=== PATIENT | male | born 1995 | race Caucasian/White ===

== ENCOUNTER 2016-08-10 19:08 | Emergency (ER) | payer OTHER ==
[2016-08-10 19:17] VITALS: BP 126/82
[2016-08-10] MEDS ORDERED: Lidocaine 1% 50 ML MDV INJECT ONE (19:20)
--- NOTE | 2016-08-10 19:24 | EDM.PDOC ---
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 He was opening a can with his hunting knife and he was opening the lid and slipped and cut the tip of his 3rd and 4th fingers. He is right handed and his tetanus it up to date. Onset: Sudden Duration: Minutes: Location: Reports: Upper Extremity, Right (3rd and 4th fingers) Quality: Reports: Sharp Severity: Mild Improves with: Reports: None Worsens with: Reports: None Context: Reports: Activity (Opening a can) Associated Symptoms: Reports: No Other Symptoms Right Hand Pain Score (Numeric/FACES): 4 - Related Data Allergies Allergy/AdvReac Type Severity Reaction Status Date / Time No Known Allergies Allergy Verified 08/10/16 19:14 Home Meds: Home Meds . [No Known Home Meds] 08/10/16 [History] Past Medical History - Past Health History Medical/Surgical History: Denies Medical/Surgical History Social & Family History - Tobacco Use Smoking Status *Q: Never Smoker - Recreational Drug Use Recreational Drug Use: No ED ROS GENERAL - Review of Systems Review Of Systems: See Below Constitutional: Reports: No Symptoms HEENT: Reports: No Symptoms Respiratory: Reports: No Symptoms Cardiovascular: Reports: No Symptoms Endocrine: Reports: No Symptoms GI/Abdominal: Reports: No Symptoms : Reports: No Symptoms Musculoskeletal: Reports: Other (Cuts to the tip of his right 3rd and 4th fingers) ED EXAM, SKIN/RASH Exam: See Below Exam Limited By: No Limitations General Appearance: Alert, No Apparent Distress Ears: Normal External Exam Nose: Normal Inspection Head: Atraumatic, Normocephalic Neck: Normal Inspection Respiratory/Chest: No Respiratory Distress Extremities: Other (1cm laceration to the tip of the right 3rd finger and 1cm laceration to the tip of the right 4th finger. Good sensation and capillary refill) ED SKIN PROCEDURES - Laceration/Wound Repair Right Finger Lac/Wound length In cm: 1 Appearance: Subcutaneous, Linear Distal NVT: Neuro & Vascular Intact, No Tendon Injury Anesthetic Type: Digital Local Anesthesia - Lidocaine (Xylocaine): 1% Plain Skin Prep: Saline Exploration/Debridement/Repair: Wound Explored, in a Bloodless Field, Explored to Base Closed with: Sutures Suture Size: 4-0 # of Sutures: 2 Suture Type: Nylon, Interrupted, Simple Tetanus Status Addressed: Yes Complications: No Course - Vital Signs Last Recorded V/S: Last Vital Signs Temp 98.2 F 08/10/16 19:15 Pulse 56 L 08/10/16 19:15 Resp 16 08/10/16 19:15 BP 126/82 08/10/16 19:15 Pulse Ox 99 08/10/16 19:15 - Orders/Labs/Meds Meds: Medications Discontinued Medications Generic Name Dose Route Start Last Admin Trade Name Wilda PRN Reason Stop Dose Admin Lidocaine HCl 50 ml 08/10/16 19:20 08/10/16 19:27 Xylocaine 1% INJECT 08/10/16 19:21 50 ml ONETIME ONE Administration Departure - Departure Time of Disposition: 19:55 Disposition: Home, Self-Care 01 Condition: Good Clinical Impression: Laceration of finger of right hand Qualifiers: Encounter type: initial encounter Finger: middle finger Damage to nail status: without damage Foreign body presence: without foreign body Qualified Code(s): S61.212A - Laceration without foreign body of right middle finger without damage to nail, initial encounter - Discharge Information Referrals: PCP,None [Primary Care Provider] - Gracie Mckinnon PA [Physician [employer]] - 1 Week Forms: ED Department Discharge Additional Instructions: Soak your finger in warm soapy water 2 times per day and apply antibiotic ointment after. Have the sutures removed in 1 week. Look for any signs of infection such as redness, swelling, pain or drainage. If you see any return and we may need to put you on an antibiotic. ED LACERATION PROCEDURES - Laceration/Wound Repair Right Finger Lac/wound length in cm: 1 Appearance: Subcutaneous, Linear Distal NVT: Neuro & Vascular Intact, No Tendon Injury Anesthetic Type: Digital Local Anesthesia - Lidocaine (Xylocaine): 1% Plain Skin Prep: Saline Exploration/Debridement/Repair: Wound Explored, in a Bloodless Field, Explored to Base Closed with: Sutures Suture Size: 4-0 # of Sutures: 2 Suture Type: Nylon, Interrupted, Simple Tetanus Status Addressed: Yes Complications: No
== END 2016-08-10 20:00 | disposition home or self-care (01) ==
LOC: JD.ED 19:08
DX: S61.212A Laceration without foreign body of right middle finger without damage to nail, initial encounter (principal); S61.214A Laceration without foreign body of right ring finger without damage to nail, initial encounter; W26.0XXA Contact with knife, initial encounter
CPT/HCPCS: 12001; 99282; 99283-25